=== PATIENT | male | born 1965 | race Caucasian/White ===

== ENCOUNTER 2016-11-06 18:00 | Inpatient (IN) | payer BC, OTHER ==
[~2016-11-06] VITALS: Ht 188 cm; Wt 107.0 kg
--- NOTE | ~2016-11-06 | EKG ---
[address] [place] [address] ELECTROCARDIOGRAM REPORT Name: HUSEYIN MARY Room #: 202-P ADM IN M.R.#: [id number] Admission: 11/06/16 Attend Phys: Joaquin Lacey Discharge: Date of : 67 Report #: [id number] THIS REPORT FOR: //name// [facility] ED Test Date: 2016-11-06 Test Time: 17:55:14 Pat Name: HUSEYIN MARY Department: Room: 202 Gender: M Branch Associate Teller: OZIEL : 1965 Requested By: Shannan Patel Order Number: [id number] MD: Kishan Livingston Measurements Intervals [place] Rate: 87 P: 38 OK: 152 QRS: -13 QRSD: 92 T: 2 QT: 335 QTc: 403 Interpretive Statements Sinus arrhythmia Anterior infarct, acute Baseline wander in lead(s) V4 No previous ECG available for comparison Electronically Signed On 11-07-2016 8:30:57 CDT by Kishan Livingston [email or web address] <ELECTRONICALLY SIGNED> By: Kishan Livingston MD, [facility] 11/07/16 0830 1755 1755 Kishan Livingston MD, FACC /EPI
--- NOTE | ~2016-11-06 | HC ---
[facility] [place] [address] CONSULTATION Name: HUSEYIN MARY Room #: 202-P ADM IN M.R.#: [id number] Admission: 11/06/16 Attend Phys: Joaquin Lacey Discharge: Date of : 67 Report #: [id number] THIS REPORT FOR: //name// CC: Veto Lacey DATE OF SERVICE: 11/06/2016 REASON FOR CONSULTATION: Acute anteroseptal wall myocardial infarction. HISTORY OF PRESENT ILLNESS: This is a very pleasant 51-year-old gentleman who presented to the emergency room with midsternal chest discomfort. The patient said it began 30 minutes prior to presentation to the emergency room after been mountain riding in the afternoon. He states that he has been very active and does do significant amount of mountain biking and had never had any discomfort, shortness of breath, or any symptoms prior to that. He denied any significant problems with controlling his blood pressure even though he does not like to take medications he has been taking. He does not have any and in fact was totally asymptomatic prior to this presentation. Upon evaluation, he was diaphoretic and with some discomfort, although not as bad as initially presented. He denies any recent fever, chills, night sweats. ALLERGIES: CODEINE. PAST MEDICAL HISTORY: Significant for hypertension and neck fracture. MEDICATIONS AT HOME: Lexapro 20 mg daily. SOCIAL HISTORY: The patient is . Does not smoke. Consumes alcohol socially. Does not follow any particular dietary restriction, but does have regular exercise. Electrocardiogram: Sinus rhythm, ST segment elevation in V3, V4 consistent with ST segment elevation myocardial infarction in the left anterior descending artery. Chest x-ray: No acute processes are noted. REVIEW OF SYSTEMS: Except for symptoms previously mentioned and those commensurate with comorbid states, the 10-point review of system is negative. PHYSICAL EXAMINATION: GENERAL: Well-developed white male, resting somewhat uncomfortable and mildly diaphoretic but in no other acute distress. VITAL SIGNS: Noted and reviewed in the chart. [facility] [address] [place] [address] CONSULTATION Name: [facility],HUSEYIN Room #: 202-P [facility] IN M.R.#: [id number] Admission: 11/06/16 Attend Phys: Joaquin Lacey Discharge: Date of : 67 Report #: [id number] HEENT: Normocephalic, atraumatic. Pupils are equal, round, reactive to light and accommodation. Extraocular muscles are intact. Sclerae and conjunctivae are anicteric. NECK: JVD is normal. Carotid upstrokes are bilaterally symmetrical. No bruits are heard. No thyromegaly. No lymphadenopathy. LUNGS: Clear to auscultation. No wheezes, rhonchi or crackles. No CVA tenderness. CARDIAC: Demonstrates a regular rhythm. Normal first and second heart sounds. No ventricular or atrial gallops, no rubs noted. No murmurs. No lifts or heaves, PMI normal. ABDOMEN: Soft, nontender, nondistended. Normal bowel sounds. EXTREMITIES: Without cyanosis, clubbing or edema. Distal pulses are intact. DTR symmetrical. NEUROLOGIC: Cranial nerves 2-12 are grossly normal and symmetrical. PSYCHIATRIC: Alert, oriented with normal affect. SKIN: Warm and dry. IMPRESSION: 1. Acute anteroseptal wall myocardial infarction. I have discussed the risks, complications and alternatives to cath, angioplasty and conscious sedation. The patient and his spouse did voice understanding, wished to proceed, was taken back to the radiographer cardiac catheterization. 2. Hypertension. We will need to evaluate this more fully and make sure he is on appropriate dietary restrictions, etc. 3. Dyslipidemia, unknown at the present time. We will get a fasting lipid profile in the a.m. so that we can further delineate. Either way he is going to be on statins if we find significant coronary disease. <ELECTRONICALLY SIGNED> By: Joaquin Lacey MD 11/06/166 58 39 Joaquin Lacey MD /nt
--- NOTE | ~2016-11-06 | CATHLAB ---
[facility] Jaspreet Shipman [employer] [place] [address] INVASIVE PROCEDURE REPORT Name: HUSEYIN MARY Room #: 202-P [facility] IN M.R.#: [id number] Admission: 11/06/16 Attend Phys: Joaquin Isaacs Discharge: 11/07/16 Date of : 67 Date of Service: 11/06/162002 Report #: [id number] THIS REPORT FOR: //name// CC: Veto Lacey DATE OF SERVICE: 11/06/2016 INDICATIONS: This is a 51-year-old male patient with acute anteroseptal wall myocardial infarction. PROCEDURES: 1. Left heart catheterization. 2. Selective left and right coronary angiography. 3. Left ventriculography and measurement of left ventricular end diastolic pressures. 4. Percutaneous transluminal coronary angioplasty and stenting of the left anterior descending artery with Medtronic Resolute 2.75 mm x 12 mm SHAI stent taken to 16 atmospheres. BASKETBALL ASSEMBLER: Joaquin Lacey MD. BRIEF DESCRIPTION OF PROCEDURE: After informed consent was obtained, the patient was brought to the cardiac catheterization laboratory in stable condition. The patient's right groin was prepped and draped in the usual sterile manner after which lidocaine was then instilled. Utilizing a modified Seldinger technique, the right femoral artery was then accessed. Under fluoroscopic visualization using selective coronary catheters, the right and left coronaries were opacified and visualized. The left ventriculogram was likewise imaged per standard protocol with EDP being measured. Subsequent to this, the sheath was removed, hemostasis achieved. The patient tolerated the procedure well. There were no complications. Following termination of the need for intervention, a standard JL4 guide was then advanced and cannulated. A 0.014 wire was then advanced distal to the lesion and flow was reestablished. A 2.75 x 12 mm SHAI stent was then deployed at position for primary deployment across the lesion and dilated to 9 atmospheres. Subsequent dilatation of 12 atmospheres and 16 atmospheres were performed with excellent result. There was no loss of side branches, distal embolization noted. Catheter wire guides were removed. The patient tolerated the procedure well. There were no complications. FINDINGS: 1. Fluoroscopy: Under fluoroscopic visualization, there was no significant calcific plaquing along the epicardial coronary arteries. 2. Hemodynamics: [facility] [address] [place] [address] INVASIVE PROCEDURE RE[facility] #: 202-P [facility] IN [place].Dequan#: [id number] Admission: 11/06/16 Attend Phys: Joaquin Isaacs Discharge: 11/07/16 Date of : 67 Date of Service: 11/06/162002 Report #: [id number] A. Preprocedure aortic pressure is 140/100. B. Left ventricular end diastolic pressure is 22-24. C. Postprocedure aortic pressure 142/90. RHYTHM: The patient's rhythm was sinus throughout the entire procedure. Angiography: This is a right coronary dominant system. A. Left main: This is of normal origin and caliber, bifurcates into left anterior descending and left circumflex free of high-grade disease. B. Left anterior descending: This is a moderate caliber vessel, which is totally occluded after the first septal and first diagonal branch. There is no antegrade flow. C. Left circumflex: This is a moderate caliber vessel, which gives rise to lateral wall branches, all of which are free of high-grade disease with only luminal irregularities. D. Right coronary artery: This is a large caliber dominant vessel, which courses posteriorly, giving rise to posterior wall branch, posterior descending artery, and posterior lateral branches, all of which are free of high-grade disease. E. Post-intervention angiography: The left anterior descending artery is unchanged except for the following. At the site of previous high grade stenosis, the vessel is widely patent. This is a type 3, moderate caliber vessel, which courses in the anterior interventricular sulcus giving rise to several smaller diagonal branches, all of which are free of high-grade disease. There is no loss of side branches, distal embolization. Stent is in place. No significant residual is noted. IMPRESSION: 1. Acute anteroseptal myocardial infarction. 2. Successful percutaneous revascularization with a Medtronic Resolute SHAI stent. 3. Abnormal hemodynamics. <ELECTRONICALLY SIGNED> By: Joaquin Lacey MD 11/10/16 1721 02 0720 Joaquin Lacey MD /nt
[2016-11-06] MEDS ORDERED: LEXAPRO 10 MG T10 M1 PO (18:21)
[2016-11-06 18:31] LABS: ABSOLUTE NEUTROPHILS 9.7 thou/uL (1.4-8.2); BASOPHILS 1.1 % (0.0-2.0); EOSINOPHILS 4.3 % (0.0-3.0); HEMATOCRIT 49.5 % (42.0-52.0); HEMOGLOBIN 16.9 gm/dL (14.0-18.0); LYMPHOCYTES 16.9 % (24.0-44.0); MCH 31.7 pg (26.0-34.0); MCHC 34.1 g/dL (28.0-37.0); MCV 92.9 fL (80.0-100.0); MONOCYTES 10.7 % (1.0-8.0); PLATELET COUNT 287 thou/uL (150-400); RBC 5.33 mil/uL (4.50-6.00); RDW 13.6 % (10.5-14.5); WBC 14.5 thou/uL (4.0-11.0)
[2016-11-06 18:34] LABS: MANUAL DIFF NO
[2016-11-06 18:48] LABS: APTT 22.6 Seconds (24.5-32.8); PROTIME 10.3 Seconds (9.3-11.4)
[2016-11-06 18:54] LABS: ANION GAP 14 mmol/L (7-16); BUN 11 mg/dL (7-18); CHLORIDE 102 mmol/L (98-107); CO2 23 mmol/L (21-32); CREATININE 1.3 mg/dL (0.6-1.3); GLUCOSE 157 mg/dL (70-99); POTASSIUM 3.8 mmol/L (3.5-5.1); SODIUM 139 mmol/L (136-145); TROPONIN-I < 0.04 ng/mL (<0.04-0.07)
[2016-11-07 03:51] LABS: HEMATOCRIT 44.1 % (42.0-52.0); MCH 31.1 pg (26.0-34.0); MCHC 33.5 g/dL (28.0-37.0); MCV 92.8 fL (80.0-100.0); RBC 4.75 mil/uL (4.50-6.00); RDW 13.1 % (10.5-14.5)
[2016-11-07 03:53] LABS: HEMOGLOBIN 14.8 gm/dL (14.0-18.0)
[2016-11-07 04:20] LABS: ANION GAP 11 mmol/L (7-16); BUN 10 mg/dL (7-18); CALCIUM 8.3 mg/dL (8.5-10.1); CHLORIDE 105 mmol/L (98-107); CHOLESTEROL 179 mg/dL (<200); CO2 23 mmol/L (21-32); GLUCOSE 118 mg/dL (70-99); HDL CHOLESTEROL 40 mg/dL (>40); LDL CHOLESTEROL 115 mg/dL (<100); POTASSIUM 3.8 mmol/L (3.5-5.1); SODIUM 139 mmol/L (136-145); TC:HDL 4.5 Ratio (Not establshd); TRIGLYCERIDE 124 mg/dL (<150); VLDL 25 mg/dL (<40)
[2016-11-07 04:32] LABS: SERUM ASSESSMENT Clear
[2016-11-07] MEDS ORDERED: NITROGLYCERIN0.4 MG SUBLING (07:23)
[2016-11-07] MEDS ORDERED: ASPIRIN325 PO (07:24)
[2016-11-07] MEDS ORDERED: LOPRESSOR25 PO (07:24)
[2016-11-07] MEDS ORDERED: EFFIENT10 MG PO (07:24)
[2016-11-07] MEDS ORDERED: ATORVASTATIN CA40 MG PO (07:25)
[2016-11-07] MEDS ORDERED: LISINOPRIL2.5 MG PO (07:25)
== END 2016-11-07 13:00 | disposition home or self-care (01) | DRG 247 ==
LOC: ER 18:00 → 2N 18:12 → EROBS 18:12 → 2N 20:51
PROVIDERS: Emergency Medicine; Internal Medicine
DX: I21.09 ST elevation (STEMI) myocardial infarction involving other coronary artery of anterior wall (principal); E78.5 Hyperlipidemia, unspecified; I10 Essential (primary) hypertension; Z87.81 Personal history of (healed) traumatic fracture; Z79.899 Other long term (current) drug therapy; Z88.6 Allergy status to analgesic agent
CPT/HCPCS: 10081